=== PATIENT | male | born 1955 | race Caucasian/White ===

== ENCOUNTER 2017-09-19 12:30 | Inpatient (IN) | payer OTHER ==
[~2017-09-19] VITALS: Ht 175.3 cm; Wt 94.8 kg
[2017-09-19 13:59] LABS: BASOPHIL % 0.5 % (0-2); PLATELET COUNT 349 x10^3mcL (130-400); RED CELL DISTRIBUTION WIDTH 14.4 % (11.5-14.5)
[2017-09-19 14:00] LABS: CALCIUM 8.6 mg/dL (8.5-10.1); CARBON DIOXIDE 32.8 mmol/L (21-32); CREATININE SERUM 1.3 mg/dL (0.7-1.3)
[2017-09-19 14:05] LABS: BILIRUBIN TOTAL 0.2 mg/dL (0.20-1.00); TOTAL PROTEIN, SERUM 7.4 g/dL (6.4-8.2)
[2017-09-19 14:06] LABS: ALBUMIN 3.3 g/dL (3.4-5.0)
[2017-09-19 18:01] VITALS: BP 178/98
[2017-09-19 18:07] VITALS: Ht 175.3 cm; Wt 94.8 kg
[2017-09-19 18:22] LABS: T3 TOTAL 1.26 ng/mL
[2017-09-19 18:24] LABS: FREE T4 1.11 ng/dL (0.76-1.46); FREE THYROXINE INDEX 3.3 ug/dL (1.4-4.5); T4(THYROXINE) 9.2 ug/dL (4.7-13.3)
[2017-09-19 18:25] LABS: CHOLESTEROL/HDL RATIO 5.2; PHOSPHOROUS 4.5 mg/dL (2.5-4.9)
[2017-09-19 21:32] VITALS: BP 150/92
[2017-09-20 05:46] VITALS: BP 126/75
[2017-09-20 06:09] LABS: BASOPHIL % 0.5 % (0-2); PLATELET COUNT 322 x10^3mcL (130-400); RED CELL DISTRIBUTION WIDTH 14.4 % (11.5-14.5)
[2017-09-20 06:48] LABS: CALCIUM 8.5 mg/dL (8.5-10.1); CHLORIDE SERUM 103 mmol/L (98-107); CREATININE SERUM 1.1 mg/dL (0.7-1.3); GFR1 > 60 mL/min; GLUCOSE SERUM 109 mg/dL (74-106); MAGNESIUM 1.8 mg/dL (1.8-2.4); PHOSPHOROUS 4.1 mg/dL (2.5-4.9); POTASSIUM SERUM 4.1 mmol/L (3.5-5.1); SODIUM SERUM 139 mmol/L (136-145)
[2017-09-20 09:44] VITALS: BP 143/80
[2017-09-20 12:19] VITALS: BP 137/74
[2017-09-21] MEDS ORDERED: HIBICLENS118 ML TOP (18:41)
[2017-09-21] MEDS ORDERED: BACO TOP (18:46)
== END 2017-09-20 15:30 | disposition left against medical advice (07) | DRG 313 ==
LOC: ED 12:30 → DU 16:52
PROVIDERS: Family Medicine
DX: R07.9 Chest pain, unspecified (principal); N17.0 Acute kidney failure with tubular necrosis; K21.9 Gastro-esophageal reflux disease without esophagitis; I08.9 Rheumatic multiple valve disease, unspecified; I10 Essential (primary) hypertension; I25.119 Atherosclerotic heart disease of native coronary artery with unspecified angina pectoris; F17.218 Nicotine dependence, cigarettes, with other nicotine-induced disorders; J44.9 Chronic obstructive pulmonary disease, unspecified; N28.1 Cyst of kidney, acquired; E78.2 Mixed hyperlipidemia; M51.36 Other intervertebral disc degeneration, lumbar region; Z68.32 Body mass index [BMI] 32.0-32.9, adult; Z53.29 Procedure and treatment not carried out because of patient's decision for other reasons
CPT/HCPCS: 83880; 84439; J1885; J3490; J7030; Q9967

== ENCOUNTER 2017-10-13 21:37 | Observation (INO) | payer OTHER ==
[~2017-10-13] VITALS: Ht 175.3 cm; Wt 90.0 kg
[~2017-10-13 21:37] MED LIST: BACO TOP; HIBICLENS118 ML TOP
[2017-10-13 21:55] VITALS: Ht 175.3 cm; Wt 90.0 kg
[2017-10-13 23:17] LABS: BASOPHIL % 0.4 % (0-2)
[2017-10-13 23:19] LABS: PLATELET COUNT 486 x10^3mcL (130-400); RED CELL DISTRIBUTION WIDTH 14.9 % (11.5-14.5)
[2017-10-13 23:22] LABS: CALCIUM 8.9 mg/dL (8.5-10.1); CARBON DIOXIDE 30.3 mmol/L (21-32); CREATININE SERUM 1.3 mg/dL (0.7-1.3); POTASSIUM SERUM 3.8 mmol/L (3.5-5.1)
[2017-10-13 23:28] LABS: ALBUMIN 3.1 g/dL (3.4-5.0); BILIRUBIN TOTAL 0.2 mg/dL (0.20-1.00); TOTAL PROTEIN, SERUM 7.5 g/dL (6.4-8.2)
[2017-10-14] MEDS ORDERED: XAN1 PO (01:29)
[2017-10-14] MEDS ORDERED: APAP/HYDROCODON1 T13 PO (01:31)
[2017-10-14 01:57] LABS: UA SPECIFIC GRAVITY 1.025 (1.005-1.035); microscopic required? YES; urine erythrocyte NEGATIVE (NEGATIVE)
[2017-10-14 02:31] LABS: PHOSPHOROUS 4.1 mg/dL (2.5-4.9)
[2017-10-14 02:32] LABS: CHOLESTEROL/HDL RATIO 5.8
[2017-10-14 02:42] LABS: FREE T4 1.24 ng/dL (0.76-1.46); T4(THYROXINE) 8.6 ug/dL (4.7-13.3)
[2017-10-14 02:52] LABS: T3 TOTAL 1.07 ng/mL
[2017-10-14 03:28] VITALS: BP 176/106
[2017-10-14 04:36] LABS: AMPHETAMINE QUAL UR POSITIVE (NEG <=1000)
[2017-10-14 06:12] VITALS: BP 176/115
[2017-10-14 06:40] VITALS: BP 149/102
[2017-10-14 08:16] LABS: BASOPHIL % 0.4 % (0-2); RED CELL DISTRIBUTION WIDTH 14.2 % (11.5-14.5)
[2017-10-14 08:17] LABS: PLATELET COUNT 479 x10^3mcL (130-400)
[2017-10-14 08:25] LABS: CALCIUM 8.8 mg/dL (8.5-10.1); CARBON DIOXIDE 29.3 mmol/L (21-32); CHLORIDE SERUM 102 mmol/L (98-107); CREATININE SERUM 1.1 mg/dL (0.7-1.3); GFR1 > 60 mL/min; GLUCOSE SERUM 94 mg/dL (74-106); POTASSIUM SERUM 3.8 mmol/L (3.5-5.1); SODIUM SERUM 139 mmol/L (136-145)
== END 2017-10-14 09:50 | disposition left against medical advice (07) | DRG 205 ==
LOC: ED 21:37 → DU 10-14 00:46
PROVIDERS: Emergency Medicine; Family Medicine Sports Medicine
DX: M94.0 Chondrocostal junction syndrome [Tietze] (principal); N17.0 Acute kidney failure with tubular necrosis; E44.0 Moderate protein-calorie malnutrition; E78.5 Hyperlipidemia, unspecified; I10 Essential (primary) hypertension; Z53.29 Procedure and treatment not carried out because of patient's decision for other reasons; F17.210 Nicotine dependence, cigarettes, uncomplicated
CPT/HCPCS: 83880; 84439; 85378; 87804; G0378; J0360; J0696; J2060; J2270; J2405; J3490; J7030; Q0092; Q9967